=== PATIENT | male | born 1990 | race African-American/Black ===

== ENCOUNTER 2018-09-14 11:34 | Emergency (ER) | payer OTHER ==
--- NOTE | 2018-09-14 11:58 | ER Document Report ---
ED Medical Screen (RME) - General Chief Complaint: Abdominal Pain Stated Complaint: ABDOMINAL PAIN Time Seen by Provider: 09/14/18 11:57 Mode of Arrival: Ambulatory Information source: Patient TRAVEL OUTSIDE OF THE [place] IN LAST 30 DAYS: No - HPI Patient complains to provider of: abd pain Onset: Other - pt. with c/o mid abd pain for the past 2-3 days. Denies N/V/D - Related Data Allergies/Adverse Reactions: No Known Allergies Allergy (Verified 09/14/18 11:35) Physical Exam - Vital signs Vitals: Temp Pulse Resp BP Pulse Ox 98.4 F 58 L 16 125/77 99 09/14/18 11:38 09/14/18 11:38 09/14/18 11:38 09/14/18 11:38 09/14/18 11:38 Course - Vital Signs Vital signs: Temp Pulse Resp BP Pulse Ox 98.4 F 58 L 16 125/77 99 09/14/18 11:38 09/14/18 11:38 09/14/18 11:38 09/14/18 11:38 09/14/18 11:38
[2018-09-14 12:29] LABS: ABSOLUTE EOSINOPHILS # (AUTO) 0.4 10^3/uL (0.0-0.6); ABSOLUTE LYMPHOCYTES (AUTO) 1.7 10^3/uL (0.5-4.7); ABSOLUTE MONOCYTES (AUTO) 0.5 10^3/uL (0.1-1.4); ABSOLUTE NEUT (AUTO) 2.9 10^3/uL (1.7-8.2); BASOPHILS % (AUTO) 0.8 % (0-2); EOSINOPHILS % (AUTO) 6.6 % (0-6); HEMATOCRIT 44.6 % (37.9-51.0); HEMOGLOBIN 15.3 g/dL (13.5-17.0); LYMPHOCYTES % (AUTO) 30.4 % (13-45); MEAN CORPUSCULAR HEMOGLOBIN 32.7 pg (27.0-33.4); MEAN CORPUSCULAR HGB CONC 34.4 g/dL (32.0-36.0); MEAN CORPUSCULAR VOLUME 95 fl (80-97); MONOCYTES % (AUTO) 8.8 % (3-13); PLATELET COUNT 225 10^3/uL (150-450); RED CELL DISTRIBUTION WIDTH 13.2 % (11.5-14.0); SEGMENTED NEUTROPHILS % (AUTO) 53.4 % (42-78); TOTAL CELLS COUNTED % (AUTO) 100 %; WHITE BLOOD COUNT 5.5 10^3/uL (4.0-10.5)
[2018-09-14 12:33] LABS: APPEARANCE,URINE CLEAR; BILIRUBIN,URINE NEGATIVE (NEGATIVE); COLOR,URINE YELLOW; GLUCOSE, URINE NEGATIVE (NEGATIVE); KETONES,URINE NEGATIVE (NEGATIVE); LEUKOCYTE ESTERASE,URINE NEGATIVE (NEGATIVE); NITRITE,URINE NEGATIVE (NEGATIVE); PROTEIN,URINE NEGATIVE (NEGATIVE)
--- NOTE | 2018-09-14 12:36 | RADIOLOGY REPORT (SQ) ---
EXAM DESCRIPTION: ACUTE ABDOMEN SERIES COMPLETED DATE/TIME: 09/14/2018 12:23 pm REASON FOR STUDY: abd pain COMPARISON: None. NUMBER OF VIEWS: Three views. TECHNIQUE: Frontal chest, supine abdomen and upright/decubitus abdomen radiographic images acquired. LIMITATIONS: None. FINDINGS: CHEST: Lungs clear of infiltrates. FREE AIR: None. No abnormal gas collections. BOWEL GAS PATTERN: Nonobstructive pattern. No dilated loops or air fluid levels. CALCIFICATIONS: No suspicious calcifications. HARDWARE: None in the abdomen. SOFT TISSUES: No gross mass or suggestion of organomegaly. BONES: No acute fracture. No worrisome bone lesions. OTHER: No other significant finding. IMPRESSION: NO RADIOGRAPHIC EVIDENCE FOR ACUTE ABDOMINAL DISEASE. TECHNICAL DOCUMENTATION: JOB ID: [id number] [employer]- All Rights Reserved Reading location - IP/workstation name: [email or web address]
[2018-09-14 12:42] LABS: ALANINE AMINOTRANSFERASE 69 U/L (21-72); ALBUMIN 4.5 g/dL (3.5-5.0); ALKALINE PHOSPHATASE 115 U/L (38-126); ANION GAP 9 (5-19); ASPARTATE AMINO TRANSFERASE 121 U/L (17-59); BILIRUBIN,DIRECT 0.1 mg/dL (0.0-0.4); BILIRUBIN,TOTAL 1.5 mg/dL (0.2-1.3); BLOOD UREA NITROGEN 18 mg/dL (7-20); CALCIUM 9.9 mg/dL (8.4-10.2); CARBON DIOXIDE 28 mmol/L (22-30); CHLORIDE 104 mmol/L (98-107); GLUCOSE 92 mg/dL (75-110); LIPASE 123.5 U/L (23-300); POTASSIUM 4.8 mmol/L (3.6-5.0); SODIUM 141.1 mmol/L (137-145); TOTAL PROTEIN 7.4 g/dL (6.3-8.2)
--- NOTE | 2018-09-14 13:55 | ER Document Report ---
ED General - General Chief Complaint: Abdominal Pain Stated Complaint: ABDOMINAL PAIN Time Seen by Provider: 09/14/18 11:57 Mode of Arrival: Ambulatory Information source: Patient TRAVEL OUTSIDE OF THE [place] IN LAST 30 DAYS: No - HPI Patient complains to provider of: Abdominal pain Onset: Other - 28-year-old otherwise totally healthy man who presents for evaluation of swelling near his bellybutton over last 3 days today it became more painful and persistent thereafter. Denies any fevers or chills, episodes of emesis, chest pain shortness of breath diarrhea because patient dysuria denies any trauma to the abdomen or previous episodes like this in the past is never had any surgeries in the past. - Related Data Allergies/Adverse Reactions: No Known Allergies Allergy (Verified 09/14/18 11:35) Past Medical History - General Information source: Patient - Social History Smoking Status: Never Smoker Frequency of alcohol use: Social Drug Abuse: None Family History: None Patient has suicidal ideation: No Patient has homicidal ideation: No Renal/ Medical History: Denies: Hx Peritoneal Dialysis Review of Systems - Review of Systems -: Yes All other systems reviewed and negative Physical Exam - Vital signs Vitals: Temp Pulse Resp BP Pulse Ox 98.4 F 58 L 16 125/77 99 09/14/18 11:38 09/14/18 11:38 09/14/18 11:38 09/14/18 11:38 09/14/18 11:38 Interpretation: Normal - General General appearance: Appears well, Alert - HEENT Head: Normocephalic, Atraumatic Eyes: Normal Pupils: PERRL - Respiratory Respiratory status: No respiratory distress Chest status: Nontender Breath sounds: Normal Chest palpation: Normal - Cardiovascular Rhythm: Regular Heart sounds: Normal auscultation Murmur: No - Abdominal Inspection: Normal Distension: No distension Bowel sounds: Normal Tenderness: Other - Small swelling in the inferior aspect of the umbilicus, Organomegaly: No organomegaly - Back Back: Normal, Nontender - Extremities General upper extremity: Normal inspection, Nontender, Normal color, Normal ROM, Normal temperature General lower extremity: Normal inspection, Nontender, Normal color, Normal ROM, Normal temperature, Normal weight bearing. No: Kirby's sign - Neurological Neuro grossly intact: Yes Cognition: Normal Orientation: AAOx4 Leighann Coma Scale Eye Opening: Spontaneous Melber Coma Scale Verbal: Oriented Melber Coma Scale Motor: Obeys Commands Melber Coma Scale Total: 15 Speech: Normal Motor strength normal: LUE, RUE, LLE, RLE Sensory: Normal - Psychological Associated symptoms: Normal affect, Normal mood - Skin Skin Temperature: Warm Skin Moisture: Dry Skin Color: Normal Course - Re-evaluation Re-evalutation: 28-year-old male with a periumbilical hernia. Through triage she had labs ordered and x-ray performed. On examination he is got a small hernia in the inferior aspect of the umbilicus. With some gentle pressure applied steadily this reduced without incident. Thereafter he was able to tolerate p.o., said that he was feeling better. We discussed surgical options. I spoke to Dr. Mclean on the phone he said that the earliest anything will be able to be done would be tomorrow potentially. Because this is the closest that anything could be done we will plan for this patient undergo discharge with return precautions and a referral for Dr. Mclean and outpatient surgery. He is amenable to this at this time. GI bleeds or presents more serious underlying cause of abdominal pain such as but not limited to appendicitis cholecystitis pancreatitis or AAA. - Vital Signs Vital signs: Temp Pulse Resp BP Pulse Ox 98.1 F 52 L 18 110/71 98 09/14/18 15:01 09/14/18 15:01 09/14/18 15:01 09/14/18 15:01 09/14/18 15:01 - Laboratory Result Diagrams: 09/14/18 12:04 09/14/18 12:04 Laboratory results interpreted by me: 09/14/18 09/14/18 09/14/18 12:04 12:04 12:08 Eosinophils % 6.6 H Total Bilirubin 1.5 H AST 121 H Urine Urobilinogen 2.0 H Discharge - Discharge Clinical Impression: Umbilical hernia Qualifiers: Obstruction and gangrene presence: without obstruction or gangrene Qualified Code(s): K42.9 - Umbilical hernia without obstruction or gangrene Condition: Good Disposition: HOME, SELF-CARE Instructions: Umbilical Hernia ([facility]) Additional Instructions: You were seen today in the emergency department for the pain in your your bellybutton. You had labs drawn as well as an x-ray of your belly, you have an umbilical hernia. You should schedule an appointment with a general surgeon in the coming week to see if you would like to repair this. Dr. Mclean said that the soonest this could be done will be tomorrow anyway as such I will have you follow-up in his clinic. Return in case of worsening abdominal pain if you begin to throw up cannot eat or drink. Referrals: ERNESTO MCLEAN MD [ACTIVE STAFF] - Follow up as needed
[2018-09-14 15:27] VITALS: BP 110/71
== END 2018-09-14 15:01 | disposition home or self-care (01) ==
LOC: ER 11:34
DX: K42.9 Umbilical hernia without obstruction or gangrene (principal); R10.9 Unspecified abdominal pain
CPT/HCPCS: 36415; 74022; 80053; 81001; 83690; 85025; 99284